=== PATIENT | female | born 1980 | race Caucasian/White ===

== ENCOUNTER → 2020-08-09 10:14 | Outpatient (CLI) | payer OTHER, SELFPAY ==
[2020-08-09 11:00] LABS: Mean Corpuscular HGB Conc 34.3 % (30-36); Mean Corpuscular Hemoglobin 31.1 PG (26-34); Mean Corpuscular Volume 90.8 fL (80-100); Platelet Count 170 X10^3/uL (150-400); Red Blood Cell Count 4.18 X10^6/uL (4.0-5.2); Red Cell Distribution Width 12.6 % (11.6-14.8); White Blood Cell Count 3.1 X10^3/uL (4.5-11.0)
[2020-08-09 11:20] LABS: Alanine Aminotransferase 17 IU/L (<35); Albumin 3.6 g/dL (3.5-5.0); Albumin Globulin Ratio 1.3 (1.0-2.8); Alkaline Phosphatase 34 U/L (38-126); Aspartate Aminotransferase 20 IU/L (14-36); Bilirubin Total 0.4 mg/dL (0.2-1.3); Blood Urea Nitrogen 11 mg/dL (7-17); Calcium 9.2 mg/dL (8.4-10.2); Carbon Dioxide 29 mmol/L (22-32); Chloride 105 mmol/L (98-107); Cholesterol 120 mg/dL (140-199); Estimated Glomerular Filt Rate > 60.0 mL/min (>60); Globulin 2.8 g/dL (1.7-4.1); Glucose 116 mg/dL (70-100); HDL Cholesterol 54 mg/dL (40-60); HEMOLYSIS < 15 (0-50); LDL Cholesterol Calculated 52 mg/dL (<100); Potassium 3.9 mmol/L (3.4-5.1); Sodium 138 mmol/L (137-145); Total Protein 6.4 g/dL (6.3-8.2); Triglycerides 68 mg/dL (35-150)
[2020-08-09 11:32] LABS: Free T4, Direct Thyroxine 2.72 ng/dL (0.78-2.19)
[2020-08-09 11:56] LABS: Thyroid Stimulating Hormone < 0.015 uIU/mL (0.47-4.68)
== END ==
PROVIDERS: Referring Provider Nurse Practitioner Family; Visit Provider Nurse Practitioner Family
DX: Z00.00 Encounter for general adult medical examination without abnormal findings (principal); E03.9 Hypothyroidism, unspecified; Z13.6 Encounter for screening for cardiovascular disorders
CPT/HCPCS: 36415; 80053; 80061; 84439; 84443; 85027

== ENCOUNTER → 2020-08-13 13:22 | Outpatient (CLI) | payer OTHER, SELFPAY ==
[2020-08-13 13:57] LABS: Hemoglobin A1C% w Est Avg Glu 5.1 % (4.0-6.0)
== END ==
PROVIDERS: Visit Provider Nurse Practitioner Family
DX: R73.9 Hyperglycemia, unspecified (principal)
CPT/HCPCS: 83036

== ENCOUNTER → 2020-11-21 11:57 | Outpatient (CLI) | payer OTHER, SELFPAY ==
[2020-11-21 12:59] LABS: Add Manual Diff / Slide Review NO; Basophils Absolute Auto 0 /uL (0-100); Basophils Percent Auto 0.8 % (0-2); Eosinophils Absolute Auto 300 /uL (0-450); Eosinophils Percent Auto 7.8 % (2-4); Hematocrit 39.4 % (36-46); Hemoglobin 13.3 g/dL (12.0-16.0); Lymphocytes Absolute Auto 2000 /uL (1100-4500); Lymphocytes Percent Auto 57.6 % (25-40); Mean Corpuscular HGB Conc 33.7 % (30-36); Mean Corpuscular Hemoglobin 30.8 PG (26-34); Mean Corpuscular Volume 91.5 fL (80-100); Monocytes Absolute Auto 500 /uL (0-900); Monocytes Percent Auto 13.4 % (3-14); Neutrophils Absolute Auto 700 /uL (1500-7000); Neutrophils Percent Auto 20.4 % (50-75); Platelet Count 196 X10^3/uL (150-400); Red Cell Distribution Width 12.6 % (11.6-14.8); White Blood Cell Count 3.5 X10^3/uL (4.5-11.0)
[2020-11-21 14:04] LABS: Thyroid Stimulating Hormone < 0.015 uIU/mL (0.47-4.68)
== END ==
PROVIDERS: PCP Nurse Practitioner Family; Referring Provider Nurse Practitioner Family; Visit Provider Nurse Practitioner Family
DX: D72.819 Decreased white blood cell count, unspecified (principal)
CPT/HCPCS: 36415; 84443; 85025

== ENCOUNTER → 2021-05-26 10:34 | Outpatient (CLI) | payer OTHER, SELFPAY ==
[2021-05-26 11:58] LABS: Free T4, Direct Thyroxine 3.47 ng/dL (0.78-2.19)
[2021-05-26 12:12] LABS: Thyroid Stimulating Hormone < 0.015 uIU/mL (0.47-4.68)
== END ==
PROVIDERS: PCP Nurse Practitioner Family; Referring Provider Nurse Practitioner Family; Visit Provider Nurse Practitioner Family
DX: E03.9 Hypothyroidism, unspecified (principal)
CPT/HCPCS: 36415; 84439; 84443

== ENCOUNTER 2021-07-31 13:36 | Emergency (ER) | payer OTHER, MEDICAID, SELFPAY ==
[2021-07-31 13:40] VITALS: BP 118/87; PULSE 114; RESP 16; TEMP 36.8; O2SAT 98; BMI 20.5
--- NOTE | 2021-07-31 13:47 | DI.RAD.S_ITS ---
PROCEDURE: XR CHEST 1V INDICATIONS: chest pain TECHNIQUE: One view of the chest was acquired. COMPARISON: None. FINDINGS: Surgical changes and devices: None. Lungs and pleura: Lungs are clear. No pleural effusions or pneumothorax. Mediastinum: Mediastinal contours appear normal. Heart size is normal. Bones and chest wall: No suspicious bony lesions. Overlying soft tissues appear unremarkable. IMPRESSION: 1. No acute cardiopulmonary disease. Dictated by: Kameron Quiñones M.D. on 07/31/2021 at 14:31 Approved by: Kameron Quiñones M.D. on 07/31/2021 at 14:41
[2021-07-31 14:08] LABS: Add Manual Diff / Slide Review NO; Basophils Absolute Auto 0 /uL (0-100); Basophils Percent Auto 0.7 % (0-2); Eosinophils Absolute Auto 200 /uL (0-450); Eosinophils Percent Auto 4.7 % (2-4); Hematocrit 40.9 % (36-46); Hemoglobin 13.6 g/dL (12.0-16.0); Lymphocytes Absolute Auto 1900 /uL (1100-4500); Lymphocytes Percent Auto 52.1 % (25-40); Mean Corpuscular HGB Conc 33.2 % (30-36); Mean Corpuscular Hemoglobin 29.4 PG (26-34); Mean Corpuscular Volume 88.7 fL (80-100); Monocytes Absolute Auto 600 /uL (0-900); Neutrophils Absolute Auto 1000 /uL (1500-7000); Neutrophils Percent Auto 26.5 % (50-75); Platelet Count 184 X10^3/uL (150-400); Red Blood Cell Count 4.61 X10^6/uL (4.0-5.2); Red Cell Distribution Width 12.6 % (11.6-14.8); White Blood Cell Count 3.7 X10^3/uL (4.5-11.0)
[2021-07-31 14:18] LABS: D Dimer 230 ng/mL (<230)
[2021-07-31 14:20] LABS: Alanine Aminotransferase 25 IU/L (<35); Albumin Globulin Ratio 1.3 (1.0-2.8); Alkaline Phosphatase 49 U/L (38-126); Aspartate Aminotransferase 26 IU/L (14-36); BUN Creatinine Ratio 34.2 (6-22); Bilirubin Total 0.5 mg/dL (0.2-1.3); Blood Urea Nitrogen 13 mg/dL (7-17); Calcium 9.7 mg/dL (8.4-10.2); Carbon Dioxide 27 mmol/L (22-32); Chloride 105 mmol/L (98-107); Creatine Kinase < 20 U/L (30-135); Estimated Glomerular Filt Rate > 60.0 mL/min (>60); Globulin 3.1 g/dL (1.7-4.1); Glucose 88 mg/dL (70-100); HEMOLYSIS < 15 (0-50); Lipase 83 U/L (23-300); Magnesium 1.8 mg/dL (1.6-2.3); Potassium 4.2 mmol/L (3.4-5.1); Sodium 137 mmol/L (137-145); Total Protein 7.1 g/dL (6.3-8.2)
[2021-07-31 14:30] LABS: Troponin I < 0.012 ng/mL (0.01-0.034)
[2021-07-31] MEDS: SODIUM CHLORIDE 0.9% 1,000 ML 1000 ML IV (14:52)
--- NOTE | 2021-07-31 14:54 | PC.NURSE ---
Sent from walkin for elevated heart rate. Intermittent elevated heartrate over last month or two. Increases at rest and with activity. Some SOB. Denies dizziness. No recent illness. Hypothyroid. On oral control
[2021-07-31 15:00] VITALS: BP 125/65; PULSE 101; RESP 20; O2SAT 100
[2021-07-31 15:11] LABS: COVID19 -Nasal RAPID Negative (Negative)
--- NOTE | 2021-07-31 15:15 | ED.ARRPALP ---
HPI - Arrhythmia/Palpitations General Chief Complaint: Arrhythmia/Palpitations Stated Complaint: high heart rate Time Seen by Provider: 07/31/21 13:57 Source: patient Mode of arrival: Ambulatory Limitations: no limitations History of Present Illness HPI narrative: This is a 40-year-old female comes with complaint of several months of elevated heart rate. Patient has noted that her resting heart rate has moved from 80-100 and she will sometimes even sit around 120. Patient states that she had waited to get her thyroid labs which she was told were normal about a month ago. They have been continuing. She tried to follow-up with her primary care physician was unable is tablet appointment so she went to the urgent care was directed here. She has had some mild shortness of breath with exertion she denies any lightheadedness. No chest pain or pressure. No nausea or vomiting. No diaphoresis. No abdominal pain. No diarrhea. No weight loss or difficulty maintaining her weight. No swelling or pain in her arms or lower extremities. She has never been told she had any rhythm problems in the past. She is on oral contraceptive called her gas Zyrtec, levothyroxine and Lexapro. Only surgical history is wisdom teeth. No tobacco, she drinks wine 3 times weekly, no illicit. Her mother from a possible stroke or heart attack in her 70s. Her father is adopted. Her maternal grandparents had strokes and cardiac issues in their 80s and her grandfather at the age of 100. Her primary care is Jennifer Rust. Related Data Previous Rx's Medication Instructions Recorded cetirizine 10 mg capsule (Zyrtec) 10 mg PO DAILY PRN #90 cap 08/11/20 drospirenone 3 mg-ethinyl 1 tab PO DAILY #84 tab 08/11/20 estradiol 0.02 mg tablet levothyroxine 25 mcg tablet 25 mcg PO DAILY #30 tab 03/31/21 escitalopram oxalate 20 mg tablet 20 mg PO DAILY #90 tab 06/05/21 Allergies Allergy/AdvReac Type Severity Reaction Status Date / Time No Known Drug Allergies Allergy Unverified 07/31/21 13:43 Review of Systems Review of Systems ROS Unobtainable: All systems reviewed & are unremarkable except as noted in HPI and below Patient History Medical History Anxiety (~2013) Decreased white blood cell count Encounter for control pills maintenance Hypothyroidism (~2015) Family History Mother Hypertension Social History Smoking Status: Never smoker second hand exposure: No alcohol intake: current (a glass of wine or beer a couple times a week) substance use type: does not use Smoking Status: Never smoker alcohol intake frequency: 3 or more drinks per day Alcohol type: wine Substance Use Type: does not use Exam Narrative Exam Narrative: GENERAL: Alert and oriented x three, thin female in mild distress. HEENT: Head normocephalic, atraumatic, EOMI, pupils reactive, face symmetric, moist mucous membranes NECK: Supple, full range of motion CARDIOVASCULAR: Tachycardic but Regular rate and rhythm without murmurs, rubs or gallops. No swelling bilateral lower extremities. RESPIRATORY: Breath sounds equal bilaterally, no wheezes rales or rhonchi. No tachypnea accessory muscle use. ABDOMEN: Soft, nontender. Normoactive bowel sounds all 4 quadrants. No guarding or rebound, rigidity, no mass : No CVA tenderness EXTREMITIES: Normal range of motion, no clubbing or edema. Neurovascularly intact NEUROLOGICAL: Cranial nerves II through XII grossly intact. Moving all extremities SKIN: Warm, dry, no petechiae, no rashes or lesions. Patient has slightly erythematous skin. Initial Vital Signs Initial Vital Signs: Vital Signs Temperature 98.3 F 07/31/21 13:40 Pulse Rate 114 H 07/31/21 13:40 Respiratory Rate 16 07/31/21 13:40 Blood Pressure 118/87 07/31/21 13:40 Pulse Oximetry 98 07/31/21 13:40 Course Orders Ordered: ED Orders 07/31/21 13:44 EKG-12 Lead Stat 07/31/21 13:47 XR chest 1V Stat 07/31/21 14:00 Complete Blood Count AUTO DIFF Stat Comprehensive Metabolic Panel Stat D Dimer Stat Free T4, Direct Thyroxine Stat Lipase Stat Magnesium Stat Thyroid Stimulating Hormone Stat Troponin & CK Cardiac Panel Stat 07/31/21 14:50 COVID19 -Nasal swab/Pre-Proc Stat Discontinued Medications Sodium Chloride (Normal Saline 0.9%) 1,000 mls @ 1,000 mls/hr IV BOLUS ONE Stop: 07/31/21 15:33 Last Infusion: 07/31/21 16:00 Dose: 0 mls/hr Documented by: Admin: 07/31/21 14:52 Dose: 1,000 mls/hr Documented by: CALLUM Vital Signs Vital signs: Vital Signs - 8 hr 07/31/21 13:40 07/31/21 15:00 07/31/21 15:47 Temperature 98.3 F Pulse Rate 114 H 101 H 103 H Respiratory Rate 16 20 18 Blood Pressure 118/87 125/65 126/67 Pulse Oximetry 98 100 100 MDM - Arrhythmia/Palpitations Lab Data Result diagrams: 07/31/21 14:00 07/31/21 14:00 Labs: Lab Results 07/31/21 07/31/21 07/31/21 Range/Units 14:00 14:00 14:00 WBC 3.7 L (4.5-11.0) X10^3/uL RBC 4.61 (4.0-5.2) X10^6/uL Hgb 13.6 (12.0-16.0) g/dL Hct 40.9 (36-46) % MCV 88.7 (80-100) fL MCH 29.4 (26-34) PG MCHC 33.2 (30-36) % RDW 12.6 (11.6-14.8) % Plt Count 184 (150-400) X10^3/uL Neut % (Auto) 26.5 L (50-75) % Lymph % (Auto) 52.1 H (25-40) % [place] % (Auto) 16.0 H (3-14) % Eos % (Auto) 4.7 H (2-4) % Baso % (Auto) 0.7 (0-2) % Neut # (Auto) 1000 L (7798-7752) /uL Lymph # (Auto) 1900 (8215-9687) /uL [place] # (Auto) 600 (0-900) /uL Eos # (Auto) 200 (0-450) /uL Baso # (Auto) 0 (0-100) /uL D-Dimer 230 (<230) ng/mL Sodium 137 (137-145) mmol/L Potassium 4.2 (3.4-5.1) mmol/L Chloride 105 (98-107) mmol/L Carbon Dioxide 27 (22-32) mmol/L BUN 13 (7-17) mg/dL Creatinine 0.38 L (0.52-1.04) mg/dL Estimated GFR > 60.0 (>60) mL/min BUN/Creatinine Ratio 34.2 H (6-22) Glucose 88 (70-100) mg/dL Calcium 9.7 (8.4-10.2) mg/dL Magnesium 1.8 (1.6-2.3) mg/dL Total Bilirubin 0.5 (0.2-1.3) mg/dL AST 26 (14-36) IU/L ALT 25 (<35) IU/L Alkaline Phosphatase 49 (38-126) U/L Total Creatine Kinase < 20 L (30-135) U/L CK-MB (CK-2) TNP CK-MB (CK-2) Rel Index TNP Troponin I < 0.012 (0.01-0.034) ng/mL Total Protein 7.1 (6.3-8.2) g/dL Albumin 4.0 (3.5-5.0) g/dL Globulin 3.1 (1.7-4.1) g/dL Albumin/Globulin Ratio 1.3 (1.0-2.8) Lipase 83 (23-300) U/L TSH (0.47-4.68) uIU/mL Free T4 (0.78-2.19) ng/dL SARS-CoV-2 (PCR) (Negative) 07/31/21 07/31/21 Range/Units 14:00 14:50 WBC (4.5-11.0) X10^3/uL RBC (4.0-5.2) X10^6/uL Hgb (12.0-16.0) g/dL Hct (36-46) % MCV (80-100) fL MCH (26-34) PG MCHC (30-36) % RDW (11.6-14.8) % Plt Count (150-400) X10^3/uL Neut % (Auto) (50-75) % Lymph % (Auto) (25-40) % [place] % (Auto) (3-14) % Eos % (Auto) (2-4) % Baso % (Auto) (0-2) % Neut # (Auto) (9883-5541) /uL Lymph # (Auto) (6502-1933) /uL [place] # (Auto) (0-900) /uL Eos # (Auto) (0-450) /uL Baso # (Auto) (0-100) /uL D-Dimer (<230) ng/mL Sodium (137-145) mmol/L Potassium (3.4-5.1) mmol/L Chloride (98-107) mmol/L Carbon Dioxide (22-32) mmol/L BUN (7-17) mg/dL Creatinine (0.52-1.04) mg/dL Estimated GFR (>60) mL/min BUN/Creatinine Ratio (6-22) Glucose (70-100) mg/dL Calcium (8.4-10.2) mg/dL Magnesium (1.6-2.3) mg/dL Total Bilirubin (0.2-1.3) mg/dL AST (14-36) IU/L ALT (<35) IU/L Alkaline Phosphatase (38-126) U/L Total Creatine Kinase (30-135) U/L CK-MB (CK-2) CK-MB (CK-2) Rel Index Troponin I (0.01-0.034) ng/mL Total Protein (6.3-8.2) g/dL Albumin (3.5-5.0) g/dL Globulin (1.7-4.1) g/dL Albumin/Globulin Ratio (1.0-2.8) Lipase (23-300) U/L TSH < 0.015 L (0.47-4.68) uIU/mL Free T4 5.33 H (0.78-2.19) ng/dL SARS-CoV-2 (PCR) Negative (Negative) Point of Care Testing Test Results Negative Imaging Data Chest x-ray: Radiologist's Impresson: [address] [address] XRay Report Signed Patient: Kim Robert MR#: [id number] : 1980 Acct:[id number] Age/Sex: 40 / F Date of Service: 07/31/21 Loc: ED Accession Number: [id number] ?? Procedure: XR chest 1V Ordering Provider: Yessi Neil D.O. PROCEDURE:? XR CHEST 1V ? INDICATIONS:? chest pain ? TECHNIQUE:? One view of the chest was acquired.? ? COMPARISON:? None. ? FINDINGS:? ? Surgical changes and devices:? None.? ? Lungs and pleura:? Lungs are clear.? No pleural effusions or pneumothorax.? ? Mediastinum:? Mediastinal contours appear normal.? Heart size is normal.? ? Bones and chest wall:? No suspicious bony lesions.? Overlying soft tissues appear unremarkable.? ? IMPRESSION:? ? 1.? No acute cardiopulmonary disease. ? ? ? Dictated by: Kameron Quiñones M.D. on 07/31/2021 at 14:31 ? ? Approved by: Kameron Quiñones M.D. on 07/31/2021 at 14:41?? ECG Data Attestation: I personally reviewed and interpreted this ECG as follows: Prior ECG tracings: not available for review Interpretation: Sinus tachycardia, rate of 112, ND 118, QRS is 72 QTC 450. Nonspecific change. No prior for comparison. MDM Narrative Medical decision making narrative: This is 40-year-old female who has had several months of elevated heart rate particularly with resting. She has not had a lot of symptoms other than some mild shortness of breath with exertion. She does have risk factors for PE with oral contraceptives but does not have a other high risk factors and it was noted that her TSH was low with an elevated T4-3 months ago. This was repeated today and shows increase in her T4-5 0.3 today. I suspect this is the cause of her tachycardia and she was asked to stop her levothyroxine. Discharge Plan Departure Patient Disposition: Home Clinical Impression: Hyperthyroidism, Tachycardia Instructions: DI for Hyperthyroidism Activity Restrictions/Additional Instructions: I suspect today your elevated heart rate is secondary to your rising T4, thyroid levels. You may have hyperthyroidism or this may be secondary to your levothyroxine. Please stop your levothyroxine. Call your physician to set up follow-up appointment. They may do some additional testing to evaluate you for thyroiditis. Please return if you are having more persistent or higher heart rates, lightheadedness or passing out, chest pain, shortness of breath, persistent vomiting, swelling of her extremities or other new or concerning symptoms. Prescriptions: No Action drospirenone-ethinyl estradiol 3-0.02 mg tablet 1 tab PO DAILY Qty: 84 RF: 3 Zyrtec 10 mg capsule 10 mg PO DAILY PRN (Reason: allergy symptoms) Qty: 90 RF: 0 levothyroxine 25 mcg tablet 25 mcg PO DAILY Qty: 30 RF: 0 escitalopram oxalate 20 mg tablet 20 mg PO DAILY Qty: 90 RF: 0 Referrals: Jennifer Rust ARNP [Primary Care Provider] -
[2021-07-31 15:47] VITALS: BP 126/67; PULSE 103; RESP 18; O2SAT 100
[2021-07-31 15:47] LABS: Free T4, Direct Thyroxine 5.33 ng/dL (0.78-2.19)
[2021-07-31 16:03] LABS: Thyroid Stimulating Hormone < 0.015 uIU/mL (0.47-4.68)
== END 2021-07-31 16:30 | disposition home or self-care (01) ==
PROVIDERS: Emergency Provider Emergency Medicine; PCP Nurse Practitioner Family
DX: E05.90 Thyrotoxicosis, unspecified without thyrotoxic crisis or storm (principal); R00.0 Tachycardia, unspecified; R06.02 Shortness of breath; R07.9 Chest pain, unspecified; Z20.822 Contact with and (suspected) exposure to COVID-19
CPT/HCPCS: 36415; 71045; 80053; 81025; 82550; 83690; 83735; 84439; 84443; 84484; 85025; 85379; 87635; 93005; 93010; 96360; 99284; C9803

== ENCOUNTER → 2021-08-07 12:08 | Outpatient (CLI) | payer OTHER, MEDICAID, SELFPAY ==
[2021-08-07 12:40] LABS: Hematocrit 39.6 % (36-46); Mean Corpuscular HGB Conc 32.9 % (30-36); Mean Corpuscular Hemoglobin 29.2 PG (26-34); Mean Corpuscular Volume 88.8 fL (80-100); Platelet Count 185 X10^3/uL (150-400); Red Blood Cell Count 4.46 X10^6/uL (4.0-5.2); Red Cell Distribution Width 12.7 % (11.6-14.8); White Blood Cell Count 2.8 X10^3/uL (4.5-11.0)
[2021-08-07 12:57] LABS: Alanine Aminotransferase 23 IU/L (<35); Albumin 3.8 g/dL (3.5-5.0); Albumin Globulin Ratio 1.4 (1.0-2.8); Alkaline Phosphatase 53 U/L (38-126); Aspartate Aminotransferase 24 IU/L (14-36); Bilirubin Total 0.4 mg/dL (0.2-1.3); Blood Urea Nitrogen 12 mg/dL (7-17); Calcium 10.2 mg/dL (8.4-10.2); Carbon Dioxide 30 mmol/L (22-32); Chloride 107 mmol/L (98-107); Cholesterol 129 mg/dL (140-199); Estimated Glomerular Filt Rate > 60.0 mL/min (>60); Globulin 2.8 g/dL (1.7-4.1); Glucose 129 mg/dL (70-100); HDL Cholesterol 61 mg/dL (40-60); HEMOLYSIS < 15 (0-50); LDL Cholesterol Calculated 47 mg/dL (<100); Potassium 4.2 mmol/L (3.4-5.1); Sodium 139 mmol/L (137-145); Total Protein 6.6 g/dL (6.3-8.2); Triglycerides 105 mg/dL (35-150)
[2021-08-07 13:04] LABS: Pregnancy Test Urine Negative (Negative)
[2021-08-07 13:13] LABS: Free T4, Direct Thyroxine 5.07 ng/dL (0.78-2.19)
[2021-08-07 13:30] LABS: Thyroid Stimulating Hormone < 0.015 uIU/mL (0.47-4.68)
[2021-08-08 19:15] LABS: Anti Thyroglobulin Antibody 4.5 IU/mL (0.0-0.9)
== END ==
PROVIDERS: PCP Nurse Practitioner Family; Referring Provider Family Medicine; Visit Provider Nurse Practitioner Family
DX: Z00.00 Encounter for general adult medical examination without abnormal findings (principal); E03.9 Hypothyroidism, unspecified; F41.9 Anxiety disorder, unspecified; Z13.6 Encounter for screening for cardiovascular disorders; E05.90 Thyrotoxicosis, unspecified without thyrotoxic crisis or storm; R00.0 Tachycardia, unspecified
CPT/HCPCS: 36415; 80053; 80061; 81025; 84439; 84443; 85027; 86800

== ENCOUNTER → 2021-09-01 10:01 | Outpatient (CLI) | payer OTHER, MEDICAID, SELFPAY | PROVIDERS: PCP Nurse Practitioner Family; Referring Provider Family Medicine; Visit Provider Family Medicine | DX: E05.90 Thyrotoxicosis, unspecified without thyrotoxic crisis or storm (principal); R00.0 Tachycardia, unspecified; Z53.8 Procedure and treatment not carried out for other reasons ==

== ENCOUNTER → 2021-09-28 11:52 | Outpatient (CLI) | payer OTHER, MEDICAID, SELFPAY ==
[2021-09-28 13:08] LABS: Add Manual Diff / Slide Review NO; Basophils Absolute Auto 0 /uL (0-100); Basophils Percent Auto 0.9 % (0-2); Eosinophils Absolute Auto 200 /uL (0-450); Eosinophils Percent Auto 5.9 % (2-4); Hemoglobin 12.7 g/dL (12.0-16.0); Lymphocytes Absolute Auto 1600 /uL (1100-4500); Lymphocytes Percent Auto 47.4 % (25-40); Mean Corpuscular HGB Conc 33.3 % (30-36); Mean Corpuscular Hemoglobin 28.9 PG (26-34); Mean Corpuscular Volume 86.8 fL (80-100); Monocytes Absolute Auto 600 /uL (0-900); Monocytes Percent Auto 17.7 % (3-14); Neutrophils Absolute Auto 900 /uL (1500-7000); Neutrophils Percent Auto 28.1 % (50-75); Platelet Count 188 X10^3/uL (150-400); Red Blood Cell Count 4.38 X10^6/uL (4.0-5.2); Red Cell Distribution Width 13.2 % (11.6-14.8); White Blood Cell Count 3.3 X10^3/uL (4.5-11.0)
[2021-09-28 14:26] LABS: Free T4, Direct Thyroxine 3.12 ng/dL (0.78-2.19)
[2021-09-28 14:41] LABS: Thyroid Stimulating Hormone < 0.015 uIU/mL (0.47-4.68)
== END ==
PROVIDERS: PCP Nurse Practitioner Family; Referring Provider Nurse Practitioner Family; Visit Provider Nurse Practitioner Family
DX: E05.90 Thyrotoxicosis, unspecified without thyrotoxic crisis or storm (principal)
CPT/HCPCS: 36415; 84439; 84443; 85025